=== PATIENT | female | born 1995 | race Caucasian/White ===

== ENCOUNTER 2018-05-01 20:50 | Inpatient (IN) | payer OTHER ==
[2018-05-01] MEDS: LACTATED RINGER'S 1,000 ML IV* (07:32)
[2018-05-01] MEDS ORDERED: CARBOPROST 250 MCG INJ IM ×2 (21:30→23:30)
[2018-05-01] MEDS ORDERED: METHYLERGONOVINE 0.2 MG INJ IM ×2 (21:30→23:30)
[2018-05-01] MEDS ORDERED: OXYTOCIN 30 UNITS/LR 500 ML IV ×2 (21:30→23:30)
[2018-05-01] MEDS ORDERED: LIDOCAINE 1% (MPF) 30 ML INJ INJ (21:30)
[2018-05-01] MEDS ORDERED: BUTORPHANOL 2 MG INJ IV (21:30)
[2018-05-01] MEDS ORDERED: MISOPROSTOL 200 MCG TAB PR ×2 (21:30→23:30)
[2018-05-01] MEDS: LACTATED RINGER'S 1,000 ML IV ×2 (21:51→22:29)
[2018-05-01 21:53] LABS: ADD MAN DIFF? NO
[2018-05-01 21:58] LABS: BASOPHIL # 0.1 10^3/ul (0.0-0.1); BASOPHILS % 0.5 % (0.0-2.0); EOSINOPHILS # 0.1 10^3/ul (0.0-0.5); EOSINOPHILS % 0.7 % (0.0-7.0); HEMATOCRIT 39.2 % (37.0-47.0); HEMOGLOBIN 12.9 g/dl (12.0-16.0); LYMPHOCYTES # 2.1 10^3/ul (0.8-2.9); LYMPHOCYTES % 16.5 % (15.0-51.0); MEAN CORPUSCULAR HEMOGLOBIN 28.4 pg (29.0-33.0); MEAN CORPUSCULAR HGB CONC 32.9 g/dl (32.0-37.0); MEAN CORPUSCULAR VOLUME 86.3 fl (82.0-101.0); MEAN PLATELET VOLUME 10.2 fl (7.4-10.4); MONOCYTE # 0.9 10^3/ul (0.3-0.9); NEUTROPHIL # 9.3 10^3/ul (1.6-7.5); NEUTROPHILS % 74.4 % (39.0-77.0); PLATELET COUNT 236 10^3/UL (140-415); RED BLOOD COUNT 4.54 10^6/ul (4.20-5.40); RED CELL DISTRIBUTION WIDTH 13.6 % (11.5-14.5)
[2018-05-01 21:58] LABS: WHITE BLOOD COUNT 12.5 10^3/ul (4.8-10.8)
[2018-05-01] MEDS ORDERED: NALOXONE (0.4 MG/ML) INJ IV (22:00)
[2018-05-01 22:22] LABS: INR 0.98; PROTIME 13.1 Sec (11.9-14.9)
[2018-05-01 22:23] LABS: PARTIAL THROMBOPLASTIN TIME 27.8 Sec (23.0-35.0)
[2018-05-01] MEDS: AMPICILLIN 2 GM/NS (PMX) 100 ML IV (22:29)
[2018-05-01 22:45] LABS: HEPATITIS B SURFACE ANTIGEN NEGATIVE (NEGATIVE)
[2018-05-01] MEDS: OXYTOCIN 30 UNITS/LR 500 ML IV ×2 (22:59→23:28)
[2018-05-01] MEDS ORDERED: ONDANSETRON 4 MG INJ IV (23:30)
[2018-05-01] MEDS ORDERED: DIBUCAINE 1% 30 GM OINT TOP (23:30)
[2018-05-01] MEDS ORDERED: MAGNESIUM HYDROXIDE 30ML CUP PO (23:30)
[2018-05-01] MEDS ORDERED: ACETAMINOPHEN 325 MG TAB PO (23:30)
[2018-05-02 00:27] LABS: BARBITURATES Negative (NEGATIVE); BENZODIAZEPINES Negative (NEGATIVE); CANNABINOIDS Negative (NEGATIVE); COCAINE Negative (NEGATIVE); OPIATES Negative (NEGATIVE)
[2018-05-02 00:28] LABS: AMPHETAMINE/METHAMPHETAMINE Negative (NEGATIVE)
[2018-05-02] MEDS: FENTAnyl 2MCG/ML-ROPIV 0.2% 100 ML BAG EPI (00:57)
[2018-05-02] MEDS ORDERED: AMPICILLIN 1 GM/NS (PMX) 50 ML IV (01:30)
[2018-05-02] MEDS: LANOLIN HPA 1 PKT TOP (01:50)
[2018-05-02] MEDS: IBUPROFEN 600 MG TAB PO ×2 (01:50→09:51)
[2018-05-02] MEDS: BENZOCAINE 20% 56 ML SPRAY TOP (01:50)
[2018-05-02] MEDS: OXYTOCIN 30 UNITS/LR 500 ML IV (04:03)
[2018-05-02] MEDS: WITCH HAZEL/GLYCERIN PAD PR (04:03)
[2018-05-02] MEDS: ACETAMINOPHEN 325 MG TAB PO (06:04)
[2018-05-02 06:20] LABS: ADD MAN DIFF? NO
[2018-05-02 06:31] LABS: BASOPHIL # 0.1 10^3/ul (0.0-0.1); BASOPHILS % 0.4 % (0.0-2.0); EOSINOPHILS # 0.1 10^3/ul (0.0-0.5); EOSINOPHILS % 0.5 % (0.0-7.0); HEMATOCRIT 34.9 % (37.0-47.0); HEMOGLOBIN 11.6 g/dl (12.0-16.0); LYMPHOCYTES # 1.8 10^3/ul (0.8-2.9); MEAN CORPUSCULAR HEMOGLOBIN 28.5 pg (29.0-33.0); MEAN CORPUSCULAR HGB CONC 33.2 g/dl (32.0-37.0); MEAN CORPUSCULAR VOLUME 85.7 fl (82.0-101.0); MEAN PLATELET VOLUME 10.5 fl (7.4-10.4); MONOCYTE # 0.9 10^3/ul (0.3-0.9); MONOCYTES % 7.2 % (0.0-11.0); NEUTROPHILS % 77.1 % (39.0-77.0); PLATELET COUNT 193 10^3/UL (140-415); RED BLOOD COUNT 4.07 10^6/ul (4.20-5.40); RED CELL DISTRIBUTION WIDTH 13.6 % (11.5-14.5)
[2018-05-02] MEDS: LACTATED RINGER'S 1,000 ML IV* (07:30)
[2018-05-02] MEDS: SENNA/DOCUSATE NA (8.6MG/50MG) TAB PO (09:49)
[2018-05-02 16:12] LABS: RAPID PLASMA REAGIN NONREACTIVE (NR)
[2018-05-04 09:02] LABS: RUBELLA ANTIBODY - IGG <0.90 index
[2018-05-05 09:06] LABS: RUBELLA ANTIBODY - IGM <20.00 AU/mL
== END 2018-05-03 14:05 | disposition home or self-care (01) | DRG 807 ==
LOC: OBT 20:50 → PP1 05-02 00:35 → L-D 20:53 → OBT 21:05 → L-D 21:05
PROC: 10E0XZZ Delivery of Products of Conception, External Approach (ICD-10-PCS; principal; 2018-05-01)
PROC: 3E033VJ Introduction of Other Hormone into Peripheral Vein, Percutaneous Approach (ICD-10-PCS; 2018-05-01)
DX: O69.81X0 Labor and delivery complicated by cord around neck, without compression, not applicable or unspecified (principal); Z37.0 Single live birth; Z3A.39 39 weeks gestation of pregnancy
CPT/HCPCS: 62319; 80307; 85025; 85610; 85730; 86592; 86762; 86850; 86900; 86901; 87340; 99464